=== PATIENT | female | born 1960 | race Caucasian/White ===

== ENCOUNTER → 2016-09-04 | Day surgery (SDC) | payer OTHER ==
[~2016-09-04] MED LIST: CELECOXIB200 MG PO; CITALOPRAM HBR40 M1
--- NOTE | ~2016-09-04 | OR ---
Unit #: [id number] #: [id number] Patient: NICA LAGOS [id number] [address] [address] [id number] MR#: [id number] NAME: NICA LAGOS ROOM: Date of Procedure: 09/04/2016 Admission Date: 09/04/2016 Surgeon: Mohit Archibald III, M.D. : 1960 Attending Physician: Mohit Archibald III, M.D. Referring Physician: Mohit Archibald III, M.D. Primary Care Physician: Zoey Canales A.P.R.N. OPERATIVE REPORT PREOPERATIVE DIAGNOSIS Screening colonoscopy. POSTOPERATIVE DIAGNOSES Diverticulosis with rectal polyp. PROCEDURE PERFORMED Colonoscopy to cecum with cold biopsy of rectal polyp. ANESTHESIA MAC. SPECIMENS Polyp to Pathology. COMPLICATIONS None apparent. INDICATIONS FOR PROCEDURE This is a 56-year-old lady, who has no family history of colon cancer and is asymptomatic. She is here today for screening colonoscopy. DESCRIPTION OF PROCEDURE After consent was obtained, the patient was brought to the endoscopy suite and placed in the left lateral decubitus position. We titrated the above sedation and I performed a rectal exam and did not feel any masses. The scope was placed within the rectal vault. Air was insufflated and I navigated the scope through a fairly tortuous sigmoid colon all the way to the cecum. She had normal mucosa. She did have some mild sigmoid diverticulosis. She also had a small hyperplastic/early adenomatous appearing polyp at about 10 cm within the rectum. This was cold biopsied in 2 pieces and completely removed. Otherwise remaining portion of her scope was normal. The scope was retroflexed within the rectum. No other masses were seen. The scope was carefully withdrawn. The patient tolerated the procedure without any problems. I will have her call my office in a few days for biopsy results. Dictated by... Mohit Archibald III, M.D. VCL/modl Unit #: [id number] #: [id number] Patient: NICA LAGOS TD: 09/04/2016 07:38 JOB #: [id number] OPERATIVE REPORT Page 1 of 1 X Mohit Archibald III, MD PROCEDURE OPERATIVE NOTE
== END | disposition home or self-care (01) ==
LOC: COPS 06:12
DX: Z12.11 Encounter for screening for malignant neoplasm of colon (principal); D12.8 Benign neoplasm of rectum; K57.30 Diverticulosis of large intestine without perforation or abscess without bleeding; Z98.51 Tubal ligation status; Z88.6 Allergy status to analgesic agent; Z79.899 Other long term (current) drug therapy
CPT/HCPCS: 88305; J2250